=== PATIENT | female | born 1960 | race Caucasian/White ===

== ENCOUNTER → 2018-03-30 | Outpatient (CLI) | payer BC ==
[~2018-03-30] MED LIST: 5HTP PO; ALPR-429 PO; AMOX-559 PO; ASCO-191 PO; ASCO100T15 PO; BISA-151 PO; CHOL200038 PO; CHOL200074 PO; CIT20 PO; CITA-139 PO; CLON-303 *; CRAN500C12 PO; DESV50TA9 PO; DOCU-416 PO; DOXY-1 PO; ESC10 PO; ESTR0.62 PO; ESTR1PAT88 TD; ESTR42.5 VG; FLAX100053 PO; FOLI-68 PO; GUAI-648 PO; GUAI600T57 PO; HYDR200T77 PO; IBUP200C71 PO; LEVO50TA89 PO; LOR5/325 PO; METH2.5T43 PO; METHOTREX; MINOCYCLINE; MIRT7.5T2 PO; OMEP-153 PO; OXYC-373 PO; OXYC-375 PO; OXYC-854 PO; OXYC-865 PO; PHEN200T32 PO; POLY17PO25 PO; PRAVASTATIN PO; PSEU120T69 PO; SODI15DR18 OP; TIZA4CAP3 PO; TRIA10.8 NS; TRIAMTERENE; TURMERIC CURCUMIN; VITA1CAP46 PO; ZINC50TA2 PO; ZOLP-350 PO; [UNRECOGNIZED DRUG - CODE] MC; [UNRECOGNIZED DRUG - CODE] PO; [UNRECOGNIZED DRUG - CODE] PO; [UNRECOGNIZED DRUG - CODE] TP; [UNRECOGNIZED DRUG - OTHER]; [UNRECOGNIZED DRUG - OTHER]
== END ==
LOC: LAB 12:49
PROVIDERS: ATTEND Internal Medicine Nephrology
DX: N18.2 Chronic kidney disease, stage 2 (mild) (principal)
CPT/HCPCS: 36415; 82040; 82247; 82248; 84075; 84155; 84450; 84460

== ENCOUNTER → 2018-04-15 | Outpatient (CLI) | payer BC ==
[~2018-04-15] MED LIST changes: -CITA-139 PO; +CITA-145 PO; -OXYC-375 PO; +OXYC1TAB78 PO
== END ==
LOC: LAB 10:55
PROVIDERS: ATTEND Internal Medicine Nephrology
DX: N18.2 Chronic kidney disease, stage 2 (mild) (principal)
CPT/HCPCS: 36415; 82040; 82310; 82374; 82435; 82565; 82947; 84100; 84132; 84295; 84520

== ENCOUNTER → 2018-05-11 | Outpatient (CLI) | payer BC ==
--- NOTE | 2018-05-11 13:45 | RADIOLOGY IMAGING REPORT ---
FACILITY: [facility] PATIENT NAME: Edna Haider : 1960 MR: [id number] V: [id number] EXAM DATE: ORDERING PHYSICIAN: FRITZ MACIAS TECHNOLOGIST: Location: [facility] - [place] Patient: Edna Haider : 1960 Visit/Account:[id number] Date of Sevice: 05/11/2018 Exam type: KUB SINGLE VIEW ABDOMEN History: History of kidney stones Comparison: May 15, 2017. Findings: Bowel gas pattern is nonspecific. No definite calculi are seen projecting over the renal shadows. M ild to moderate degenerative changes of both hip joints and lumbar spine. No gross evidence of organ omegaly. IMPRESSION: 1. No definite calculi seen projecting over the renal shadows. Report Dictated By: Iram Chiu MD at 05/11/2018 1:40 PM Report E-Signed By: Iram Chiu MD at 05/11/2018 1:42 PM WSN:[email or web address]
== END ==
LOC: LAB 12:37
PROVIDERS: ATTEND Internal Medicine Nephrology
DX: N18.2 Chronic kidney disease, stage 2 (mild) (principal); N20.0 Calculus of kidney
CPT/HCPCS: 74018; 82340; 82507; 83945; 84105; 84560

== ENCOUNTER → 2018-06-22 | Outpatient (CLI) | payer BC ==
[~2018-06-22] MED LIST changes: +IBUP-136 PO; -IBUP200C71 PO
--- NOTE | 2018-06-22 14:03 | RADIOLOGY IMAGING REPORT ---
[place] [facility] [place] NAME: Edna Haider : 1960 MR: [id number] V: [id number] EXAM DATE: ORDERING PHYSICIAN: GABI BARCLAY TECHNOLOGIST: Location: [facility] - [place] Patient: Edna Haider : 1960 Visit/Account:[id number] Date of Sevice: 06/22/2018 EXAMINATION: C SPINE W/O CONTRAST INDICATION: Neck pain COMPARISON: January 10, 2016 TECHNIQUE: Multiplane MR imaging was performed through the cervical spine without contrast. FINDINGS: Vertebral body height: Normal Cord signal: Normal Marrow signal: Normal Prevertebral and paraspinal soft tissues: Normal C2-3: Normal C3-4: Normal C4-5: Congenitally narrowed canal, small unchanged disc protrusion, mild to moderate unchanged canal narrowing, mild unchanged right foraminal narrowing. C5-6: Moderate unchanged disc space degeneration. Congenitally narrowed canal and small disc protrusi on as before. Unchanged moderate canal narrowing. Moderate unchanged right foraminal narrowing. Moder ate to severe left foraminal narrowing has either increased or was better visualized on prior. C6-7: Moderate to severe unchanged disc space degeneration. Small disc protrusion and congenitally na rrowed canal as before. Moderate unchanged canal narrowing. Severe unchanged right greater than left foraminal narrowing. C7-T1: Normal IMPRESSION: 1. Unchanged mild to moderate C4-5, moderate C5-6 and moderate C6-7 canal narrowing. 2. Multilevel foraminal narrowing as before, see level by level comments above. 3. Unchanged C5-6 and C6-7 disc space degeneration, see comments above. Report Dictated By: Keegan Luna MD at 06/22/2018 1:53 PM Report E-Signed By: Keegan Luna MD at 06/22/2018 2:00 PM WSN:[email or web address]
== END ==
LOC: MRI 12:36
PROVIDERS: ATTEND Family Medicine
DX: M48.02 Spinal stenosis, cervical region (principal); M50.321 Other cervical disc degeneration at C4-C5 level
CPT/HCPCS: 72141

== ENCOUNTER → 2018-09-14 | Outpatient (CLI) | payer BC ==
[2018-09-14 11:24] LABS: PLATELET COUNT, AUTOMATED 67 K/uL (150-450)
== END ==
LOC: LAB 11:05
PROVIDERS: ATTEND Anesthesiology
DX: Z01.812 Encounter for preprocedural laboratory examination (principal); M19.042 Primary osteoarthritis, left hand; M65.4 Radial styloid tenosynovitis [de Quervain]; G56.02 Carpal tunnel syndrome, left upper limb
CPT/HCPCS: 36415; 82040; 82247; 82310; 82374; 82435; 82565; 82947; 84075; 84132; 84155; 84295; 84450; 84460; 84520; 85025

== ENCOUNTER → 2018-10-06 | Outpatient (REF) | payer BC | LOC: ZZSENDIN 16:44 | PROVIDERS: ATTEND Family Medicine | DX: D69.6 Thrombocytopenia, unspecified (principal) ==

== ENCOUNTER → 2018-11-09 | Outpatient (CLI) | payer BC ==
[2018-11-09 12:25] LABS: PLATELET COUNT, AUTOMATED 56 K/uL (150-450)
== END ==
LOC: LAB 12:05
PROVIDERS: ATTEND Internal Medicine Rheumatology
DX: M05.79 Rheumatoid arthritis with rheumatoid factor of multiple sites without organ or systems involvement (principal); Z79.899 Other long term (current) drug therapy
CPT/HCPCS: 36415; 82040; 82247; 82310; 82374; 82435; 82565; 82947; 84075; 84132; 84155; 84295; 84450; 84460; 84520; 85025; 85651; 86803

== ENCOUNTER → 2019-01-13 | Outpatient (CLI) | payer BC ==
[2018-11-26 12:09] VITALS: BMI 26.9
[~2019-01-13] MED LIST changes: +ACET-1966 PO; +ACET-2893 PO; +ACET-3017 PO; +ACYC-50 PO; +BISA5TAB19 PO; +CITA-141 PO; +CLON-331 PO; +CLON-388 PO; +D-MA50PO PO; +FAMO-129 PO; +GUAI-652 PO; +GUAI600T84 PO; +HYDR50CA47 PO; +IOPAMIDOL 61% 75 ML INFUS BTL 75 ML ONE; +LACT1CAP6 PO; +LAMO25TA68 PO; +MAGN100T5 PO; +METR500T15 PO; +MINO60SO TP; +PRED20TA6 PO; +PSEU120T9 PO; +RANI-366 PO; +VITA-175 PO; +Vitamin D3 PO; +ZOLP-1 PO; +ZOLP-358 PO; +[UNRECOGNIZED DRUG - CODE] PO; +[UNRECOGNIZED DRUG - CODE] TP
--- NOTE | 2019-01-13 14:49 | RADIOLOGY IMAGING REPORT ---
FACILITY: [facility] [place] PATIENT NAME: Edna Haider : 1960 MR: [id number] V: [id number] EXAM DATE: ORDERING PHYSICIAN: GABI BARCLAY TECHNOLOGIST: Location: [facility] Patient: Edna Haider : 1960 Visit/Account:[id number] Date of Sevice: 01/13/2019 CT ABDOMEN PELVIS W/ CON Additional pertinent History: Generalized abdominal pain One of the following dose optimization techniques was utilized in the performance of this exam: Autom ated exposure control; adjustment of the mA and/or kV according to the patient's size; or use of an i terative reconstruction technique. Specific details can be referenced in the facility's radiology C T exam operational policy. TECHNIQUE: Spiral scan was through the abdomen and pelvis during injection of nonionic iodinated in travenous contrast. Contrast: 70 mL of IV Isovue-300 COMPARISON STUDIES: 05/23/2017 FINDINGS: Liver / biliary: Status post cholecystectomy. No liver lesions. Ventricular dilatation of the commo n duct down to the duodenum. Pancreas: negative Spleen: negative Adrenal glands: negative Kidneys / retroperitoneum: Homogenous mammograms bilaterally. Two nonobstructing 2 mm stones in the mid right kidney. Pelvic structures: negative Bowel / peritoneum / mesenteries: There are diverticuli noted throughout the left colon and sigmoid c olon. There is an edematous segment of mid sigmoid colon with pericolonic stranding compatible with uncomplicated acute diverticulitis. No free air. No abscess. (Images 383 through 343 series 3.) T here is a second area of minimal pericolonic stranding adjacent to diverticuli in the distal descendi ng colon (images 308-330 series 3) Vessels: negative Musculoskeletal / Body wall: negative Lymph node assessment: negative Lower chest: negative IMPRESSION: 1. Segment of inflamed mid sigmoid colon compatible with acute uncomplicated diverticulitis. There appears to be a potential second area of minimal diverticulitis or sequela from previous diverticulit is involving the distal descending colon. 2. Nonobstructing small right renal calculi. Report Dictated By: Hal Toribio MD at 01/13/2019 2:33 PM Report E-Signed By: Hal Toribio MD at 01/13/2019 2:45 PM WSN:[email or web address]
== END ==
LOC: CT 07:04
PROVIDERS: ATTEND Family Medicine
DX: K57.30 Diverticulosis of large intestine without perforation or abscess without bleeding (principal); N20.0 Calculus of kidney
CPT/HCPCS: 74177; Q9967

== ENCOUNTER 2019-02-18 14:24 | Emergency (ER) | payer BC ==
[2018-11-26 12:09] VITALS: Wt 78.9 kg
[~2019-02-18 14:24] MED LIST changes: -IOPAMIDOL 61% 75 ML INFUS BTL 75 ML ONE; +SIME180C40 PO
[2019-02-18] MEDS ORDERED: TIZA-1 PO (14:40)
--- NOTE | 2019-02-18 15:13 | ER Report ---
History and Physical Time Seen By MD: 15:12 Hx. of Stated Complaint: abd pain and diarrhea HPI/ROS CHIEF COMPLAINT: abdominal pain HISTORY OF PRESENT ILLNESS: Pt here for evaluation of LLQ abdominal pain. Pt states that pain is constant but will radiate to the right lower quadrant at times. worse with palpation and motion.Pt concerned it could be diverticulitis. Pt Had divertic in Jan and was treated with augmentin and flagyl. Pt states she is also sick with headache, bodyaches, occasional cough and muscleaches. Pt denies fevers but states she does not get fevers. Pt is on custodial steroids for itp. REVIEW OF SYSTEMS: Constitutional: No fever, no chills. Eyes: No discharge. ENT: No sore throat. Cardiovascular: No chest pain, no palpitations. Respiratory: + cough, no shortness of breath. Gastrointestinal: + abdominal pain, no vomiting,loose stool Genitourinary: No hematuria. Musculoskeletal: No back pain. + bodyaches Skin: No rashes. Neurological: + headache. Allergies: Coded Allergies: sulfamethoxazole (Unverified Adverse Reaction, Severe, NAUSEA/VOMITING, 02/18/19) trimethoprim (Unverified Adverse Reaction, Severe, NAUSEA/VOMITING, 02/18/19) Home Meds Reported Medications Tizanidine Hcl (TIZANIDINE HCL) 2 Mg Tablet, 2 MG PO TID PRN for MUSCLE SPASMS 02/18/19 Simethicone (GAS-X ULTRA STRENGTH) 180 Mg Capsule, 180 MG PO PRN, CAPSULE 01/21/19 D-Mannose (MANNOSE) 50 Gm Powder, 50 GM PO 12/09/18 Lactobacillus Combination No.4 (PROBIOTIC) 1 Each Capsule, 1 EACH PO DAILY, CA PSULE 12/09/18 Clonazepam (CLONAZEPAM) 0.5 Mg Tab.rapdis, 0.5 MG PO PRN, #6 TAB Take 1/2 to 1 tablet PRN 12/09/18 [Vitamin D3] No Conflict Check, 5000 UNITS PO DAILY 12/09/18 Prednisone (PREDNISONE) 20 Mg Tablet, 2.5 MG PO QDAY, TAB 12/03/18 Zolpidem Tartrate (ZOLPIDEM TARTRATE) 10 Mg Tablet, 0.5-1 TAB PO QHS, #30 TAB 11/27/18 Minoxidil (MINOXIDIL) 60 Ml Solution, 60 ML TP DAILY 11/26/18 Acyclovir (ACYCLOVIR) 400 Mg Tablet, 400 MG PO TID, TAB PT REPORTS TAKING 1 TAB TID FOR 4-5 DAYS PRN FOR COLD SORE BREAKOUTS 11/26/18 Citalopram Hydrobromide (CITALOPRAM HBR) 40 Mg Tablet, 40 MG PO QDAY, #5 TAB 11/26/18 Acetaminophen (ARTHRITIS PAIN) 650 Mg Tablet.er, 650 MG PO PRN 11/25/18 Hydroxyzine Pamoate (VISTARIL) 50 Mg Capsule, 1-2 CAP PO PRN, CAPSULE 11/25/18 Vitamin B Complex (B COMPLEX) 1 Each Tablet, 1 EACH PO DAILY 11/25/18 Magnesium Glycinate (MAG GLYCINATE) 100 Mg Tablet, 4 TAB PO QHS 11/25/18 Estrogens, Conjugated 0.625 Mg/Ml Vag Cream (PREMARIN 0.625 MG/ML VAGINAL CR) 42.5 Gm Cream.appl, 0 VG Q2WK, TUBE 01/12/17 Zinc Amino Acid Chelate (ZINC) 50 Mg Tablet, 50 MG PO QDAY 01/12/17 Triamcinolone Acetonide (Nasacort) 10.8 Ml [place], 1 SPRAY NS BID PRN for ALLERGY SYMPTOMS 02/28/16 Discontinued Reported Medications Metronidazole (METRONIDAZOLE) 500 Mg Tablet, 500 MG PO TID for 7 Days, TAB 01/14/19 Amoxicillin/Pot Clav 875-125 Mg Tab (AUGMENTIN 875-125 TABLET) 1 Each Tablet, 1 TAB PO Q8H for 7 Days, TAB 01/14/19 Oxycodone Hcl/Acetaminophen (PERCOCET 5-325 MG TABLET) 1 Each Tablet, 1 EACH PO DIRECTED PRN for BREAKTHROUGH PAIN, #15 TAB 01/14/19 Bisacodyl (Women's Gentle Laxative) 5 Mg Tablet.dr, 1 TAB PO PRN PRN for CONSTIPATION 12/09/18 Famotidine (PEPCID AC) 10 Mg Tablet, 10 MG PO PRN, TAB 11/25/18 Oregano Oil (OIL OF [place]) 1,500 Mg Capsule, 1500 MG PO PRN, CAPSULE 11/25/18 Past Medical/Surgical History Pmhx: ITP, RA, depression/anxiety, hypercholesterol, kidney ds, kidney stones, divertic Pshx: back surgery, jon Reviewed Nurses Notes: Yes Old Medical Records Reviewed: Yes Hx Smoking: No Smoking Status: Never Smoker Hx Substance Use Disorder: No Hx Alcohol Use: Yes (moderate) Constitutional Vital Sign - Last 24 Hours 02/18/19 02/18/19 02/18/19 02/18/19 14:31 14:33 14:54 15:00 Temp 99.4 Pulse 104 91 Resp 12 B/P (MAP) 132/111 (118) 132/111 128/93 (105) Pulse Ox 96 94 O2 Delivery Room Air 02/18/19 02/18/19 02/18/19 02/18/19 15:24 15:30 15:35 15:40 Pulse 82 85 88 B/P (MAP) 134/88 (103) Pulse Ox 97 94 96 02/18/19 02/18/19 02/18/19 16:10 16:30 16:40 Pulse 85 88 B/P (MAP) 142/91 (108) Pulse Ox 93 90 Physical Exam General Appearance: The patient is alert, has no immediate need for airway protection and no signs of toxicity. Eyes: Pupils equal and round no pallor or injection, EOMI ENT: no pharyngeal erythema or exudates, Mucous membranes are moist, TM are nl b/l Respiratory: There are no retractions, lungs are clear to auscultation. Cardiovascular: Regular rate and rhythm. pulses are equal and symmetrical Gastrointestinal: Abdomen is soft with LLQ tenderness, no masses, bowel sounds normal, no guarding, no rigidity or rebound Neurological: Cranial nerves II-XII grossly intact, no sensory or motor loss Skin: Warm and dry, no rashes. Musculoskeletal: Neck is supple non tender, no vertebral tenderness Extremities are nontender, nonswollen and have full range of motion. DIFFERENTIAL DIAGNOSIS: After history and physical exam differential diagnosis was considered for divertic, abd abscess, ovarian cyst, appy, influenza Medical Decision Making Data Points Result Diagram: 02/18/19 1433 Laboratory Hematology Test 02/18/19 14:33 02/18/19 15:39 02/18/19 16:09 Sodium Level 134 mmol/L (137-145) Potassium Level 4.0 mmol/L (3.5-5.0) Chloride Level 106 mmol/L (98-107) Carbon Dioxide Level 22 mmol/L (22-31) Blood Urea Nitrogen 18 mg/dl (7-18) Creatinine 0.90 mg/dl (0.52-1.04) Glomerular Filtration Rate Calc > 60.0 Random Glucose 100 mg/dl (75-110) Calcium Level 9.5 mg/dl (8.4-10.2) Total Bilirubin 0.6 mg/dl (0.2-1.3) Aspartate Amino Transf (AST/SGOT) 36 U/L (0-35) Alanine Aminotransferase (ALT/SGPT) 39 U/L (0-56) Alkaline Phosphatase 115 U/L (0-126) Total Protein 8.0 g/dl (6.3-8.2) Albumin 4.5 g/dl (3.5-5.0) Influenza Virus Type A (PCR) Negative (NEGATIVE) Influenza Virus Type B (PCR) Negative (NEGATIVE) Urine Color Straw Urine Clarity Clear Urine pH 8.0 pH (4.8-9.5) Urine Specific Secretary 1.010 Urine Protein Negative mg/dL (NEGATIVE) Urine Glucose (UA) Negative mg/dL (NEGATIVE) Urine Ketones Negative mg/dL (NEGATIVE) Urine Blood Negative (NEGATIVE) Urine Nitrite Negative (NEGATIVE) Urine Bilirubin Negative (NEGATIVE) Urine Urobilinogen Negative mg/dL (0.2-1.9) Urine Leukocyte Esterase Negative (NEGATIVE) Urine RBC <1 /HPF (0-2/HPF) Urine WBC None /HPF (0-5/HPF) Urine Squamous Epithelial Cells Many /LPF (</=FEW) Urine Bacteria Negative /HPF (NONE-FEW) Urine Hyaline Casts Few /LPF (NONE-FEW) Urine Mucus None /HPF (NONE-FEW) Chemistry Test 02/18/19 14:33 02/18/19 15:39 02/18/19 16:09 Glomerular Filtration Rate Calc > 60.0 Calcium Level 9.5 mg/dl (8.4-10.2) Total Bilirubin 0.6 mg/dl (0.2-1.3) Aspartate Amino Transf (AST/SGOT) 36 U/L (0-35) Alanine Aminotransferase (ALT/SGPT) 39 U/L (0-56) Alkaline Phosphatase 115 U/L (0-126) Total Protein 8.0 g/dl (6.3-8.2) Albumin 4.5 g/dl (3.5-5.0) Influenza Virus Type A (PCR) Negative (NEGATIVE) Influenza Virus Type B (PCR) Negative (NEGATIVE) Urine Color Straw Urine Clarity Clear Urine pH 8.0 pH (4.8-9.5) Urine Specific Secretary 1.010 Urine Protein Negative mg/dL (NEGATIVE) Urine Glucose (UA) Negative mg/dL (NEGATIVE) Urine Ketones Negative mg/dL (NEGATIVE) Urine Blood Negative (NEGATIVE) Urine Nitrite Negative (NEGATIVE) Urine Bilirubin Negative (NEGATIVE) Urine Urobilinogen Negative mg/dL (0.2-1.9) Urine Leukocyte Esterase Negative (NEGATIVE) Urine RBC <1 /HPF (0-2/HPF) Urine WBC None /HPF (0-5/HPF) Urine Squamous Epithelial Cells Many /LPF (</=FEW) Urine Bacteria Negative /HPF (NONE-FEW) Urine Hyaline Casts Few /LPF (NONE-FEW) Urine Mucus None /HPF (NONE-FEW) Urinalysis Test 02/18/19 16:09 Urine Color Straw Urine Clarity Clear Urine pH 8.0 pH (4.8-9.5) Urine Specific Secretary 1.010 Urine Protein Negative mg/dL (NEGATIVE) Urine Glucose (UA) Negative mg/dL (NEGATIVE) Urine Ketones Negative mg/dL (NEGATIVE) Urine Blood Negative (NEGATIVE) Urine Nitrite Negative (NEGATIVE) Urine Bilirubin Negative (NEGATIVE) Urine Urobilinogen Negative mg/dL (0.2-1.9) Urine Leukocyte Esterase Negative (NEGATIVE) Urine RBC <1 /HPF (0-2/HPF) Urine WBC None /HPF (0-5/HPF) Urine Squamous Epithelial Cells Many /LPF (</=FEW) Urine Bacteria Negative /HPF (NONE-FEW) Urine Hyaline Casts Few /LPF (NONE-FEW) Urine Mucus None /HPF (NONE-FEW) ED Course/Re-evaluation ED Course check labs and ct 02/18/2019 4:20:38 pm pts abdominal pain not gone but improved with the fentanyl. headache gone. 02/18/2019 4:53:13 pm Pts belly pain returning. will remedicate. Pts imaging shows divertic without perf or abscess. Pt had divertic in January. I recommend pt follow up with DR. Parsons for colonoscopy which she has never had once she has completed her abx. Pt does not want levaquin but would like augmentin with flagyl. Pt also has thrush from prior abx which was treated with nystatin wash and now feels that she may need diflucan for possible yeast vaginally. Will prescribe diflucan as well. Decision to Disposition Date: Feb 18, 2019 Decision to Disposition Time: 16:55 Depart Departure Latest Vital Signs Vital Signs Date Time Temp Pulse Resp B/P (MAP) Pulse Ox O2 Delivery O2 Flow Rate FiO2 02/18/19 16:40 88 90 02/18/19 16:30 142/91 (108) 02/18/19 14:33 99.4 12 Room Air Impression: Primary Impression: Sigmoid diverticulitis Condition: Condition Unchanged Disposition: HOME OR SELF-CARE Referrals: GABI BARCLAY DO (PCP) MASOUD PARSONS MD recommend out patient Colonscopy when better New Scripts Amoxicillin/Pot Clav 875-125 Mg Tab (AUGMENTIN 875-125 TABLET) 1 Each Tablet 1 TAB PO Q12H, #20 TAB Prov: FANY BLUE DO 02/18/19 Metronidazole (FLAGYL) 500 Mg Tablet 500 MG PO TID, #30 TAB Prov: FANY BLUE DO 02/18/19 Fluconazole (DIFLUCAN) 150 Mg Tablet 150 MG PO QDAY, #1 TAB 1 Refill Prov: FANY BLUE DO 02/18/19 Patient Instructions: Diverticulitis (ED) Additional Instructions: You have acute diverticulitis. Recommend when you are better to follow up with Dr. Parsons to schedule a colonoscopy. Flagyl 500mg three times a day for 10 days. Augmentin twice a day for 10 days. Diflucan one pill when you pick it up. You may repeat if you are still symptomatic after you have completed your antibiotic course. hydrocodone with tylenol 1-2 every 4 hours as needed for severe pain. Follow up with your family doctor. Return as needed. FANY BLUE DO Feb 18, 2019 15:13
[2019-02-18] MEDS ORDERED: fentaNYL CITR 100 MCG/2 ML AMP IVP ONE ×2 (15:25→16:55)
[2019-02-18] MEDS ORDERED: IOPAMIDOL 76% 150 ML INFUS BTL 150 ML ONE (15:35)
[2019-02-18] MEDS ORDERED: fentaNYL CITR 100 MCG/2 ML AMP ONE (15:45)
[2019-02-18 16:30] VITALS: BP 142/91
--- NOTE | 2019-02-18 16:39 | RADIOLOGY IMAGING REPORT ---
FACILITY: [facility] PATIENT NAME: Edna Haider : 1960 MR: [id number] V: [id number] EXAM DATE: ORDERING PHYSICIAN: FANY BLUE TECHNOLOGIST: Location: [facility] Patient: Edna Haider : 1960 Visit/Account:[id number] Date of Sevice: 02/18/2019 EXAMINATION: CT abdomen and pelvis with contrast COMPARISON: 01/13/2019 CT and earlier. HISTORY: Left lower quadrant abdominal pain radiating to the right. PROCEDURE: Multiplanar contrast enhanced CT of the abdomen and pelvis with 75 mL intravenous Isovue 3 70. One of the following dose optimization techniques was utilized in the performance of this exam: A utomated exposure control; adjustment of the mA and/or kV according to the patient's size; or use of an iterative reconstruction technique. Specific details can be referenced in the facility's radiolo gy CT exam operational policy. FINDINGS: Visualized thorax: Left lower lobe 3 mm nodule is unchanged since 2017 and is considered a benign fin ding. No acute changes. Liver: Negative. Gallbladder and biliary system: Cholecystectomy. Intrahepatic and extra hepatic bile duct is unchange d since 2017 and favored to be due to the postcholecystectomy state. Spleen: Negative. Pancreas: Negative. Adrenal glands: Negative. Kidneys and bladder: No renal mass or hydronephrosis. Punctate nonobstructing stones in the right kid wade mid pole. Urinary bladder is within normal limits. Vessels: Minimal iliac atherosclerosis. No abdominal aortic aneurysm. Portal venous system and IVC ar e within normal limits. Bowel and mesentery: Stomach, small bowel, and appendix are within normal limits. Minimal stool in th e colon. Left hemicolon mild to moderate diverticulosis. Proximal sigmoid colon diverticular inflamma tion with wall thickening and pericolonic inflammation. No extraluminal gas or fluid collection. This segment of inflamed bowel is different than the diverticulitis demonstrated on the prior study. Pelvic organs: Negative. Lymph nodes: No adenopathy. Free air/free fluid: None. Abdominal wall and osseous structures: Tiny fat-containing of the local hernia. L4-L5 moderately adva nced degenerative change with moderate canal stenosis is redemonstrated. No acute findings. IMPRESSION: 1. Proximal sigmoid colon acute uncomplicated diverticulitis. 2. Right kidney punctate nonobstructing nephrolithiasis. 3. Additional chronic/incidental findings as detailed above. Report Dictated By: Anuel Kraus MD at 02/18/2019 4:26 PM Report E-Signed By: Anuel Kraus MD at 02/18/2019 4:35 PM WSN:[id number]
[2019-02-18] MEDS ORDERED: AMOX-559 PO (16:58)
[2019-02-18] MEDS ORDERED: METR-1 PO (16:58)
[2019-02-18] MEDS ORDERED: LOR5/325 PO (16:58)
[2019-02-18] MEDS ORDERED: FLUC150T40 PO (16:58)
== END 2019-02-18 17:16 | disposition home or self-care (01) ==
LOC: ER 15:14
DX: K57.32 Diverticulitis of large intestine without perforation or abscess without bleeding (principal)
CPT/HCPCS: 74177; 81001; 87502; 96374; 96376; 99284; J3010; Q9967; 82040; 82247; 82310; 82374; 82435; 82565; 82947; 84075; 84132; 84155; 84295; 84450; 84460; 84520

== ENCOUNTER 2019-02-25 08:30 | Outpatient (RCR) | payer BC ==
[2018-11-26 12:09] VITALS: Ht 170.2 cm; Wt 79.7 kg
[2018-12-03 08:32] VITALS: BP 132/99
[2018-12-03 08:57] LABS: PLATELET COUNT, AUTOMATED 23 K/uL (150-450)
--- NOTE | 2018-12-03 10:56 | ONCOLOGY CONSULTATION ---
EVENT DATE: December 03, 2018 REFERRING PHYSICIAN Hospitalist. REASON FOR CONSULTATION Evaluation and management of thrombocytopenia. HEMATOLOGY HISTORY Patient is a 58-year-old female with a history of autoimmune disease with mild rheumatoid arthritis diagnosed in 2010. Patient was tested also positive for JUN. She is followed by community engagement specialist. Patient was maintained on Plaquenil for over seven years and for improving her mood as the patient has depression and anxiety. Patient was prescribed Lamictal and after that she started to have low platelet count. She was admitted to the hospital recently with a platelet of 5,000. Patient was taken off Plaquenil and Lamictal and she received platelet transfusion and she received one dose of Decadron 40 mg intravenously and her platelet count improved after that from 5,000 to 50,000, then to 80,000 but her platelet count today on December 03, 2018, dropped back to 23 with normal CBC except for the low platelet count. Patient denies any constitutional symptoms currently. Patient denies any current bleeding or easy bruising. PAST MEDICAL HISTORY 1. Rheumatoid arthritis, diagnosed in 2010. She was diagnosed with inflammatory arthritis at that time. 2. Depression and anxiety. 3. Hypercholesterolemia. 4. Chronic kidney disease, stage 2. PAST SURGICAL HISTORY 1. Back surgery. 2. Cholecystectomy. FAMILY HISTORY Paternal aunt with breast cancer. Paternal cousin with breast cancer. 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 She denies any abuse of tobacco, alcohol or drugs. She drinks alcohol sometimes. CURRENT MEDICATIONS 1. Zolpidem 10 mg 1/2 to 1 tablet at bedtime p.r.n. 2. Minoxidil solution topical daily. 3. Acyclovir 400 mg three times a day. 4. Guaifenesin 600 mg as needed. 5. Citalopram 40 mg daily. 6. Pepcid 10 mg oral as needed. 7. Tylenol 650 mg p.r.n. for pain. 8. Zantac 150 mg as needed. 9. Pseudoephedrine 120 mg as needed. 10. Oregano Oil 1500 mg oral as needed. 11. Acetaminophen with codeine 3 every 4 hours p.r.n. for pain. 12. Clonazepam 0.5 mg twice daily as needed p.r.n. 13. Hydroxyzine 50 mg one to two capsules as needed. 14. Vitamin B complex daily. 15. Magnesium glycinate 100 mg at bedtime. 16. Conjugated estrogen 0.625 mg cream every two weeks. 17. Vitamin D3 2000 units daily. 18. Vitamin C 1000 mg daily. 19. Zinc immuno acid 50 mg daily. 20. Triamcinolone acetonide spray nasal twice. ALLERGIES No known drug allergies but she is ALLERGIC to IODINATED CONTRAST. REVIEW OF SYSTEMS CONSTITUTIONAL: No appetite or weight change. No fever, chills or sweating. No recent infection. HEENT: Ears: No tinnitus or hearing problem. Nose: She has nasal discharge. Throat: No sore throat or mouth ulcers. Eyes: No diplopia or visual changes. RESPIRATORY: She has cough. CARDIOVASCULAR: No chest pain, orthopnea, or paroxysmal nocturnal dyspnea (PND). No edema. No palpitations. GASTROINTESTINAL: She has heartburn sometimes. GENITOURINARY: Patient has had heavy periods for years, and she has been seen by a foreign policy officer, and she was offered uterine ablation, but the patient refused the procedure. As per patient, she has had heavy periods for a total of seven days every month. MUSCULOSKELETAL: No pain in the muscles, joints or bones. NEUROLOGICAL: She has numbness in her left hand after her recent surgery. She has headache. HEMATOLOGIC/LYMPHATIC: She is weak, tired and fatigued. SKIN: No skin rash or lumps. PSYCHIATRIC: No anxiety or depression. PHYSICAL EXAMINATION GENERAL: Looks stable. Well-developed, well-nourished, and in no acute distress. VITAL SIGNS: Blood pressure 132/99, pulse 80 per minute, respirations 16 per minute, temperature 98.8, pulse ox 95% on room air. HEENT: Head: Atraumatic. No sinus tenderness to palpation. Eyes: No icterus or conjunctivitis. Mouth and Throat: No oral thrush or mucositis. NECK: Supple. No cervical or supraclavicular lymphadenopathy. LUNGS: Clear to auscultation and percussion bilaterally. HEART: Regular rate and rhythm. No gallops, murmurs, clicks or rubs. ABDOMEN: Soft and lax. No tenderness. No hepatosplenomegaly. No masses. EXTREMITIES: No cyanosis, clubbing or edema. LYMPHATICS: No peripheral lymphadenopathy. NEUROLOGICAL: Conscious, alert and oriented x3. No focal motor or sensory deficits. PSYCHIATRIC: Mood and affect appear normal. SKIN: No skin rash, bruise or purpuric eruption. ASSESSMENT Thrombocytopenia, most probably due to idiopathic thrombocytopenic purpura given that the patient has a history of autoimmune disease with rheumatoid arthritis and positive JUN. Her current platelet count is 23,000. I had a long discussion with the patient about first-line treatment and I am planning to treat her with prednisone 60 mg daily with gradual taper off over the next two to three months if the patient will have a response to the treatment. I talked to her also today about second-line treatment, which may include rituximab and Nplate. As an evaluation for her idiopathic thrombocytopenic purpura, I am planning to check her platelet associated antibodies, vitamin B12, methylmalonic assay and folic acid assay. I am planning also to check H. pylori test. I am planning also to get an ultrasound of the spleen. I am planning to check HIV testing too. I will see the patient after the above for further evaluation and management. I am planning to check her blood count twice per week and I will see her in two weeks from now with CBC and chem panel. PLAN 1. CBC and chem panel. 2. Vitamin B12 and methylmalonic acid assay. 3. Folic acid level. 4. H. pylori test. 5. HIV test. 6. Ultrasound of the abdomen for evaluation of the spleen size. 7. Prednisone 60 mg daily. 8. CBC to be checked twice per week. 9. Patient to return in two weeks with CBC and chem panel. 10. Patient to contact us for any new concerns or complaints. BEATA
[2018-12-07 08:29] VITALS: BP 111/88
[2018-12-07 08:43] LABS: PLATELET COUNT, AUTOMATED 116 K/uL (150-450)
--- NOTE | 2018-12-07 08:50 | RADIOLOGY IMAGING REPORT ---
FACILITY: [facility] - [place] PATIENT NAME: Edna Haider : 1960 MR: [id number] V: [id number] EXAM DATE: ORDERING PHYSICIAN: GAUTAM TORRES TECHNOLOGIST: Location: [facility] - [place] Patient: Edna Haider : 1960 Visit/Account:[id number] Date of Sevice: 12/07/2018 SPLEEN HISTORY: Thrombocytopenia Additional history: None COMPARISON: Comparison abdomen/pelvis CT January 12, 2017. Spleen appeared normal at that time. FINDINGS: This is a limited examination with attention of the spleen. The spleen is normal in size and appeara nce measuring 9 x 3 cm. There is no splenomegaly. Left kidney is also visualized and measures 8.7 c m in length and appears morphologically normal. Aorta and IVC are patent. IMPRESSION: Normal-appearing spleen. No evidence of splenomegaly Report Dictated By: Martin Chi MD at 12/07/2018 8:42 AM Report E-Signed By: Martin Chi MD at 12/07/2018 8:45 AM WSN:[email or web address]
[2018-12-10 09:58] VITALS: BP 117/79
[2018-12-10 10:16] LABS: PLATELET COUNT, AUTOMATED 95 K/uL (150-450)
[2018-12-14 10:05] VITALS: BP 127/85
[2018-12-14 10:29] LABS: PLATELET COUNT, AUTOMATED 114 K/uL (150-450)
[2018-12-17 08:15] VITALS: BP 135/96
[2018-12-17 08:23] LABS: PLATELET COUNT, AUTOMATED 115 K/uL (150-450)
--- NOTE | 2018-12-19 17:02 | ONCOLOGY FOLLOW UP NOTE ---
EVENT DATE: December 17, 2018 CHIEF COMPLAINT Followup for thrombocytopenia. HISTORY OF PRESENT ILLNESS Patient is a 58-year-old female who was seen today in followup. She was started on prednisone 60 mg daily on 12/03/18. Platelet count has remained in the 100,000 range, improved over initial platelet count. She does note that much of her stiffness related to her rheumatoid arthritis has significantly improved. She is hesitant to decrease the prednisone dose too quickly. She has an appointment to see a purchasing intern next week. She has had anxiety, but finds that clonazepam has been helpful. She also notes some recent constipation. HEMATOLOGY HISTORY Patient has a history of autoimmune disease with rheumatoid arthritis diagnosed in 2010. She was maintained on Plaquenil for over seven years which worked fairly well. She was also treated with Lamictal for anxiety/depression, but then noted her platelet count started to decrease. She presented to the Emergency Room on 11/25/18 with a platelet count of 9000. She began prednisone 60 mg daily on 12/03/18. MEDICAL HISTORY 1. Rheumatoid arthritis, 2010. 2. Depression/anxiety. 3. Hyperlipidemia. 4. Chronic kidney disease, stage 2. PAST SURGICAL HISTORY 1. Back surgery. 2. Cholecystectomy. 3. Bilateral land surgery. FAMILY HISTORY Paternal aunt had breast cancer. Paternal cousin had breast cancer. SOCIAL HISTORY Patient is single. She has no children. She works with a partner at [employer]. She does not smoke or use drugs. She drinks alcohol occasionally. MEDICATIONS 1. Zolpidem. 2. Minoxidil solution. 3. Acyclovir 400 mg t.i.d. 4. Guaifenesin. 5. Citalopram 40 mg daily. 6. Pepcid p.r.n. 7. Tylenol p.r.n. 8. Zantac p.r.n. 9. Pseudoephedrine p.r.n. 10. Oregano oil. 11. Tylenol No. 3 p.r.n. 12. Clonazepam 0.5 to 1 mg. 13. Hydroxyzine p.r.n. 14. Vitamin B complex. 15. Magnesium glycinate. 16. Conjugated estrogen cream every two weeks. 17. Vitamin D3 2000 International Units daily. 18. Vitamin C 1000 mg daily. 19. Zinc amino acid. 20. Triamcinolone acetonide nasal spray. 21. Prednisone. ALLERGIES No known drug allergies, but allergic to IODINE CONTRAST. REVIEW OF SYSTEMS A 12-point review of systems is performed and is negative except as stated above. PHYSICAL EXAMINATION VITAL SIGNS: Weight 80.2 kg. BP 135/94, P 92, R 16, temp 98.8, O2 sat 95%. GENERAL: Patient is a well-developed, well-nourished female in no acute distress. HEAD: Normocephalic, atraumatic. EYES: Sclerae anicteric. MOUTH: Moist mucous membranes. LUNGS: Clear bilaterally. CARDIOVASCULAR: Heart rate regular, 92 per minute, without murmur, S3, or S4. EXTREMITIES: No edema. NEUROLOGIC: Nonfocal. LABORATORY CBC today reveals a WBC of 11.5, hemoglobin 15.6, hematocrit 45.3, platelets 115,000. CMP is within normal limits. B12 is 784, methylmalonic acid 0.16, folate 19.2. HIV negative. Strongly positive platelet antibodies IgG and IgM. IMPRESSION AND PLAN The patient is a 58-year-old female with autoimmune disease with rheumatoid arthritis and positive JUN. When she started on Lamictal, platelet count decreased and this was discontinued. She presented on 11/25/18 with a platelet count of 9000. She began prednisone 60 mg daily on 12/03/18. 1. Thrombocytopenia. Likely idiopathic thrombocytopenia purpura. She is no longer taking Lamictal. As platelet count has been in the 100,000 range since 12/07/18, will continue prednisone 60 mg daily. She actually hopes that this does not get discontinued too quickly as her rheumatoid arthritis symptoms are markedly better. We spent some time reviewing her labs as well as her abdominal ultrasound done on 12/07/18. Spleen was normal size. 2. Rheumatoid arthritis. She will follow up with purchasing intern next week. She has been off Plaquenil and noted significantly increased fatigue as well as stiffness. However, this has resolved on prednisone. 3. Constipation. Recommended senna-S. She did not find MiraLAX to be helpful. 4. CBC on 12/21/18. 5. Follow up with Dr. Gomez on 12/24/18 for continued care. BEATA
[2018-12-21 10:04] LABS: PLATELET COUNT, AUTOMATED 123 K/uL (150-450)
[2018-12-21 10:05] VITALS: BP 141/84
[2018-12-24 09:00] VITALS: BP 120/86
[2018-12-24 09:14] LABS: PLATELET COUNT, AUTOMATED 162 K/uL (150-450)
--- NOTE | 2018-12-24 10:14 | EL-TARABILY ONCOLOGY NOTE ---
EVENT DATE: December 24, 2018 DIAGNOSES 1. Idiopathic thrombocytopenic purpura. 2. Rheumatoid arthritis. CHIEF COMPLAINT Patient is here today for follow up of her ITP with low platelet count. HEMATOLOGY HISTORY Patient is a 58-year-old female with a history of autoimmune disease with mild rheumatoid arthritis diagnosed in 2010. Patient was tested also positive for JUN. She is followed by pyrotechnic assembler. Patient was maintained on Plaquenil for over seven years and for improving her mood as the patient has depression and anxiety. Patient was prescribed Lamictal and after that she started to have low platelet count. She was admitted to the hospital recently with a platelet of 5,000. Patient was taken off Plaquenil and Lamictal and she received platelet transfusion and she received one dose of Decadron 40 mg intravenously and her platelet count improved after that from 5,000 to 50,000, then to 80,000 but her platelet count today on December 03, 2018, dropped back to 23 with normal CBC except for the low platelet count. Patient denies any constitutional symptoms currently. Patient denies any current bleeding or easy bruising. HISTORY AND PRESENT ILLNESS Patient is here today for followup of her ITP with low platelet count. She is doing fine currently. Her joint pain has actually resolved nearly completely with her full-dose prednisone. She has some pain in her right hip area but she said this is actually a muscle pain. Other than that, she is really doing very well. PAST MEDICAL HISTORY 1. Rheumatoid arthritis, diagnosed in 2010. She was diagnosed with inflammatory arthritis at that time. 2. Depression and anxiety. 3. Hypercholesterolemia. 4. Chronic kidney disease, stage 2. PAST SURGICAL HISTORY 1. Back surgery. 2. Cholecystectomy. FAMILY HISTORY Paternal aunt with breast cancer. Paternal cousin with breast cancer. 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 She denies any abuse of tobacco, alcohol or drugs. She drinks alcohol sometimes. CURRENT MEDICATIONS 1. Zolpidem 10 mg 1/2 to 1 tablet at bedtime p.r.n. 2. Minoxidil solution topical daily. 3. Acyclovir 400 mg three times a day. 4. Guaifenesin 600 mg as needed. 5. Citalopram 40 mg daily. 6. Pepcid 10 mg oral as needed. 7. Tylenol 650 mg p.r.n. for pain. 8. Zantac 150 mg as needed. 9. Pseudoephedrine 120 mg as needed. 10. Oregano Oil 1500 mg oral as needed. 11. Acetaminophen with codeine 3 every 4 hours p.r.n. for pain. 12. Clonazepam 0.5 mg twice daily as needed p.r.n. 13. Hydroxyzine 50 mg one to two capsules as needed. 14. Vitamin B complex daily. 15. Magnesium glycinate 100 mg at bedtime. 16. Conjugated estrogen 0.625 mg cream every two weeks. 17. Vitamin D3 2000 units daily. 18. Vitamin C 1000 mg daily. 19. Zinc immuno acid 50 mg daily. 20. Triamcinolone acetonide spray nasal twice. ALLERGIES No known drug allergies but she is ALLERGIC to IODINATED CONTRAST. REVIEW OF SYSTEMS CONSTITUTIONAL: No appetite or weight change. No fever, chills or sweating. No recent infection. HEENT: Ears: No tinnitus or hearing problem. Nose: She has nasal discharge. Throat: No sore throat or mouth ulcers. Eyes: No diplopia or visual changes. RESPIRATORY: She has cough. CARDIOVASCULAR: No chest pain, orthopnea, or paroxysmal nocturnal dyspnea (PND). No edema. No palpitations. GASTROINTESTINAL: She has heartburn sometimes. GENITOURINARY: Patient has had heavy periods for years, and she has been seen by a community relations advisor, and she was offered uterine ablation, but the patient refused the procedure. As per patient, she has had heavy periods for a total of seven days every month. MUSCULOSKELETAL: She has pain in her right hip region due to myalgia but her joint pain is nearly resolved with her current prednisone therapy. NEUROLOGICAL: She has numbness in her left hand after her recent surgery. She has headache. HEMATOLOGIC/LYMPHATIC: She is weak, tired and fatigued. SKIN: No skin rash or lumps. PSYCHIATRIC: No anxiety or depression. PHYSICAL EXAMINATION GENERAL: Looks stable. Well-developed, well-nourished, and in no acute distress. VITAL SIGNS: Blood pressure 120/86, pulse 83 per minute, respirations 16 per minute, temperature 97.4, pulse ox 95% on room air. HEENT: Head: Atraumatic. No sinus tenderness to palpation. Eyes: No icterus or conjunctivitis. Mouth and Throat: No oral thrush or mucositis. NECK: Supple. No cervical or supraclavicular lymphadenopathy. LUNGS: Clear to auscultation and percussion bilaterally. HEART: Regular rate and rhythm. No gallops, murmurs, clicks or rubs. ABDOMEN: Soft and lax. No tenderness. No hepatosplenomegaly. No masses. EXTREMITIES: No cyanosis, clubbing or edema. LYMPHATICS: No peripheral lymphadenopathy. NEUROLOGICAL: Conscious, alert and oriented x3. No focal motor or sensory deficits. PSYCHIATRIC: Mood and affect appear normal. SKIN: No skin rash, bruise or purpuric eruption. DIAGNOSTIC DATA CBC showed white count 9.6, hemoglobin 15.1, hematocrit 44.6, platelet 162,000. ASSESSMENT Thrombocytopenia due to idiopathic thrombocytopenic purpura given that the patient has also autoimmune disease with rheumatoid arthritis and positive JUN. Her current platelet count improved from 23,000 to currently 162,000 with full dose prednisone at 60 mg daily. Patient is now over two weeks on that dose and I am planning to start the slow prednisone taper. I will decrease her dose by 10 mg every week until we reach a dose of 30 mg daily. Then after that we will decrease the dose by 5 mg every week until we taper the prednisone totally off. I am planning to check her CBC every week now. I will see her in a month with CBC and chem panel. If the patient will relapse her low platelet after tapering her prednisone then we will have the option of rituximab, which would also help her rheumatoid arthritis or Nplate therapy. I explained that to the patient and she is agreeable with the plan of management. PLAN 1. Continue prednisone taper. 2. CBC and chem panel to be checked weekly. 3. Patient to return in one month with CBC and chem panel. 4. Consider treatment with rituximab or Nplate if she relapses her thrombocytopenia. 5. Patient to contact us for any new concerns or complaints. ISHAND
[2018-12-31 08:34] VITALS: BP 126/89
[2018-12-31 08:56] LABS: PLATELET COUNT, AUTOMATED 176 K/uL (150-450)
[2019-01-07 08:35] VITALS: BP 159/96
[2019-01-07 08:50] LABS: PLATELET COUNT, AUTOMATED 191 K/uL (150-450)
[2019-01-14 08:32] VITALS: BP 136/93
[2019-01-14 08:49] LABS: PLATELET COUNT, AUTOMATED 273 K/uL (150-450)
[2019-01-21 08:16] VITALS: BP 134/93
[2019-01-21 08:19] LABS: PLATELET COUNT, AUTOMATED 272 K/uL (150-450)
--- NOTE | 2019-01-21 09:55 | ONCOLOGY FOLLOW UP NOTE ---
EVENT DATE: January 21, 2019 DIAGNOSES 1. Idiopathic thrombocytopenic purpura. 2. Rheumatoid arthritis. CHIEF COMPLAINT Patient is here today for follow up of her ITP. HEMATOLOGY HISTORY Patient is a 58-year-old female with a history of autoimmune disease with mild rheumatoid arthritis diagnosed in 2010. Patient was tested also positive for JUN. She is followed by homogenizer operator. Patient was maintained on Plaquenil for over seven years and for improving her mood as the patient has depression and anxiety. Patient was prescribed Lamictal and after that she started to have low platelet count. She was admitted to the hospital recently with a platelet of 5,000. Patient was taken off Plaquenil and Lamictal and she received platelet transfusion and she received one dose of Decadron 40 mg intravenously and her platelet count improved after that from 5,000 to 50,000, then to 80,000 but her platelet count today on December 03, 2018, dropped back to 23 with normal CBC except for the low platelet count. Patient denies any constitutional symptoms currently. Patient denies any current bleeding or easy bruising. HISTORY AND PRESENT ILLNESS Patient is here today for followup of her ITP on prednisone taper currently. She is complaining of sweating. She has dry cough sometime. She has abdominal pain recently due to diverticulitis with gaseous distention, currently on antibiotic. She has aches and pains in her hand joints. She has occasional headache. She is weak, tired and fatigued. PAST MEDICAL HISTORY 1. Rheumatoid arthritis, diagnosed in 2010. She was diagnosed with inflammatory arthritis at that time. 2. Depression and anxiety. 3. Hypercholesterolemia. 4. Chronic kidney disease, stage 2. PAST SURGICAL HISTORY 1. Back surgery. 2. Cholecystectomy. FAMILY HISTORY Paternal aunt with breast cancer. Paternal cousin with breast cancer. 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 She denies any abuse of tobacco, alcohol or drugs. She drinks alcohol sometimes. CURRENT MEDICATIONS 1. Zolpidem 10 mg 1/2 to 1 tablet at bedtime p.r.n. 2. Minoxidil solution topical daily. 3. Acyclovir 400 mg three times a day. 4. Guaifenesin 600 mg as needed. 5. Citalopram 40 mg daily. 6. Pepcid 10 mg oral as needed. 7. Tylenol 650 mg p.r.n. for pain. 8. Zantac 150 mg as needed. 9. Pseudoephedrine 120 mg as needed. 10. Oregano Oil 1500 mg oral as needed. 11. Acetaminophen with codeine 3 every 4 hours p.r.n. for pain. 12. Clonazepam 0.5 mg twice daily as needed p.r.n. 13. Hydroxyzine 50 mg one to two capsules as needed. 14. Vitamin B complex daily. 15. Magnesium glycinate 100 mg at bedtime. 16. Conjugated estrogen 0.625 mg cream every two weeks. 17. Vitamin D3 2000 units daily. 18. Vitamin C 1000 mg daily. 19. Zinc immuno acid 50 mg daily. 20. Triamcinolone acetonide spray nasal twice. ALLERGIES No known drug allergies but she is ALLERGIC to IODINATED CONTRAST. REVIEW OF SYSTEMS CONSTITUTIONAL: Patient has some sweating. HEENT: Ears: No tinnitus or hearing problem. Nose: She has nasal discharge. Throat: No sore throat or mouth ulcers. Eyes: No diplopia or visual changes. RESPIRATORY: She has dry cough. CARDIOVASCULAR: No chest pain, orthopnea, or paroxysmal nocturnal dyspnea (PND). No edema. No palpitations. GASTROINTESTINAL: She has abdominal pain and gaseous distention from her recent diverticulitis. GENITOURINARY: Patient has had heavy periods for years, and she has been seen by a human relations manager, and she was offered uterine ablation, but the patient refused the procedure. As per patient, she has had heavy periods for a total of seven days every month. MUSCULOSKELETAL: She has aches and pains, especially in the hands. NEUROLOGICAL: She has occasional headache. HEMATOLOGIC/LYMPHATIC: She is weak, tired and fatigued. SKIN: No skin rash or lumps. PSYCHIATRIC: No anxiety or depression. PHYSICAL EXAMINATION GENERAL: Looks stable. Well-developed, well-nourished, and in no acute distress. VITAL SIGNS: Blood pressure 134/93, pulse 98 per minute, respirations 16 per minute, temperature 97.4, pulse ox 94% on room air. HEENT: Head: Atraumatic. No sinus tenderness to palpation. Eyes: No icterus or conjunctivitis. Mouth and Throat: No oral thrush or mucositis. NECK: Supple. No cervical or supraclavicular lymphadenopathy. LUNGS: Clear to auscultation and percussion bilaterally. HEART: Regular rate and rhythm. No gallops, murmurs, clicks or rubs. ABDOMEN: Soft and lax. No tenderness. No hepatosplenomegaly. No masses. EXTREMITIES: No cyanosis, clubbing or edema. LYMPHATICS: No peripheral lymphadenopathy. NEUROLOGICAL: Conscious, alert and oriented x3. No focal motor or sensory deficits. PSYCHIATRIC: Mood and affect appear normal. SKIN: No skin rash, bruise or purpuric eruption. DIAGNOSTIC DATA CBC showed white count 7.9, hemoglobin 14.8, hematocrit 44.9, platelet 272,000. Chem panel totally normal except sodium 136, blood sugar 133, AST 44. Other parameters are normal. ASSESSMENT Thrombocytopenia due to idiopathic thrombocytopenic purpura given that the patient has also autoimmune disease with rheumatoid arthritis and positive JUN. Her current platelet count initially was 23,000 and patient started prednisone 60 mg daily with normalization of her platelet count. She is currently on prednisone taper. She is receiving currently 20 mg daily and I am planning to decrease the dose by 5 mg until full tapering of prednisone. Her current platelet count is 272,000. I am planning to continue to monitor her count every week and I will see her in two months. If the patient would relapse earlier then there are two options, either Nplate therapy or rituximab. I prefer Rituximab in her case because of her underlying rheumatoid arthritis and rituximab could help her joint pain and at the same time it will help also her platelet count. I spent longer time with the patient today, answering all her questions to her satisfaction and she is agreeable with the plan of management. PLAN 1. Continue prednisone taper. 2. CBC to be checked weekly. 3. Patient to return in two months with CBC. 4. Consider treatment with rituximab or Nplate if she relapses her thrombocytopenia. 5. Patient to contact us for any new concerns or complaints. ISHAND
[2019-01-27 09:00] VITALS: BP 131/91
[2019-01-27 09:18] LABS: PLATELET COUNT, AUTOMATED 306 K/uL (150-450)
[2019-02-04 08:13] VITALS: BP 123/95
[2019-02-04 08:17] LABS: PLATELET COUNT, AUTOMATED 247 K/uL (150-450)
--- NOTE | 2019-02-04 12:53 | [facility] ONCOLOGY NOTE ---
EVENT DATE: February 04, 2019 DIAGNOSES 1. Idiopathic thrombocytopenic purpura. 2. Rheumatoid arthritis. CHIEF COMPLAINT Patient is here today for follow up of her ITP. HEMATOLOGY HISTORY Patient is a 58-year-old female with a history of autoimmune disease with mild rheumatoid arthritis diagnosed in 2010. Patient was tested also positive for JUN. She is followed by personal development educator. Patient was maintained on Plaquenil for over seven years and for improving her mood as the patient has depression and anxiety. Patient was prescribed Lamictal and after that she started to have low platelet count. She was admitted to the hospital recently with a platelet of 5,000. Patient was taken off Plaquenil and Lamictal and she received platelet transfusion and she received one dose of Decadron 40 mg intravenously and her platelet count improved after that from 5,000 to 50,000, then to 80,000 but her platelet count today on December 03, 2018, dropped back to 23 with normal CBC except for the low platelet count. Patient denies any constitutional symptoms currently. Patient denies any current bleeding or easy bruising. HISTORY AND PRESENT ILLNESS Patient is here today for followup of her ITP on prednisone taper. She is complaining of cold sweats sometimes. She has nasal discharge. She has also dry cough. She has pain in her shoulders and left hand. She has also headache. She has weakness and fatigue. She is extremely fatigued and she has recently diverticulitis, treated with antibiotic, and developed and oral thrush, which is improving with Nystatin. PAST MEDICAL HISTORY 1. Rheumatoid arthritis, diagnosed in 2010. She was diagnosed with inflammatory arthritis at that time. 2. Depression and anxiety. 3. Hypercholesterolemia. 4. Chronic kidney disease, stage 2. PAST SURGICAL HISTORY 1. Back surgery. 2. Cholecystectomy. FAMILY HISTORY Paternal aunt with breast cancer. Paternal cousin with breast cancer. 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 She denies any abuse of tobacco, alcohol or drugs. She drinks alcohol sometimes. CURRENT MEDICATIONS 1. Zolpidem 10 mg 1/2 to 1 tablet at bedtime p.r.n. 2. Minoxidil solution topical daily. 3. Acyclovir 400 mg three times a day. 4. Guaifenesin 600 mg as needed. 5. Citalopram 40 mg daily. 6. Pepcid 10 mg oral as needed. 7. Tylenol 650 mg p.r.n. for pain. 8. Zantac 150 mg as needed. 9. Pseudoephedrine 120 mg as needed. 10. Oregano Oil 1500 mg oral as needed. 11. Acetaminophen with codeine 3 every 4 hours p.r.n. for pain. 12. Clonazepam 0.5 mg twice daily as needed p.r.n. 13. Hydroxyzine 50 mg one to two capsules as needed. 14. Vitamin B complex daily. 15. Magnesium glycinate 100 mg at bedtime. 16. Conjugated estrogen 0.625 mg cream every two weeks. 17. Vitamin D3 2000 units daily. 18. Vitamin C 1000 mg daily. 19. Zinc immuno acid 50 mg daily. 20. Triamcinolone acetonide spray nasal twice. ALLERGIES No known drug allergies but she is ALLERGIC to IODINATED CONTRAST. REVIEW OF SYSTEMS CONSTITUTIONAL: She has cold sweats sometimes. HEENT: Ears: No tinnitus or hearing problem. Nose: She has nasal discharge. Throat: No sore throat or mouth ulcers. Eyes: No diplopia or visual changes. RESPIRATORY: She has dry cough. CARDIOVASCULAR: No chest pain, orthopnea, or paroxysmal nocturnal dyspnea (PND). No edema. No palpitations. GASTROINTESTINAL: She has abdominal pain and gaseous distention from her recent diverticulitis. GENITOURINARY: Patient has had heavy periods for years, and she has been seen by a hair weaver, and she was offered uterine ablation, but the patient refused the procedure. As per patient, she has had heavy periods for a total of seven days every month. MUSCULOSKELETAL: She has pain in the shoulders and left hand. NEUROLOGICAL: She has headache. HEMATOLOGIC/LYMPHATIC: She is weak, tired and fatigued extremely. SKIN: No skin rash or lumps. PSYCHIATRIC: No anxiety or depression. PHYSICAL EXAMINATION GENERAL: Looks stable. Well-developed, well-nourished, and in no acute distress. VITAL SIGNS: Blood pressure 123/95, pulse 101 per minute, respirations 16 per minute, temperature 97.4, pulse ox 91% on room air. HEENT: Head: Atraumatic. No sinus tenderness to palpation. Eyes: No icterus or conjunctivitis. Mouth and Throat: No oral thrush or mucositis. NECK: Supple. No cervical or supraclavicular lymphadenopathy. LUNGS: Clear to auscultation and percussion bilaterally. HEART: Regular rate and rhythm. No gallops, murmurs, clicks or rubs. ABDOMEN: Soft and lax. No tenderness. No hepatosplenomegaly. No masses. EXTREMITIES: No cyanosis, clubbing or edema. LYMPHATICS: No peripheral lymphadenopathy. NEUROLOGICAL: Conscious, alert and oriented x3. No focal motor or sensory deficits. PSYCHIATRIC: Mood and affect appear normal. SKIN: No skin rash, bruise or purpuric eruption. DIAGNOSTIC DATA CBC showed white count 8,000, hemoglobin 16, hematocrit 48.3, platelet 247,000. ASSESSMENT Idiopathic thrombocytopenic purpura (ITP) given that the patient has also autoimmune disease with rheumatoid arthritis and positive JUN. Patient initially presented with platelet count of 23,000. She started prednisone at 60 mg daily with normalization of her platelet count. She started after that prednisone taper. She is currently on 10 mg daily and I advised her to continue that for a week and then 5 mg for another week and then 2.5 mg for another week and to stop her prednisone. I am planning to see her in four weeks from now with CBC and I will check her CBC every week. If the patient would have relapse of her ITP, she has the option of either Nplate therapy or rituximab. Rituximab will be beneficial for her ITP and also for her rheumatoid arthritis. Her current platelet count is normal at 247,000 and I am planning to continue her prednisone taper. PLAN 1. Continue prednisone taper. 2. CBC to be checked weekly. 3. Patient to return in four weeks with CBC. 4. Consider treatment with rituximab or Nplate if her ITP relapses in the future. 5. Patient to contact us for any new concerns or complaints. BEATA
[2019-02-12 09:10] VITALS: BP 137/89
[2019-02-12 09:29] LABS: PLATELET COUNT, AUTOMATED 206 K/uL (150-450)
[2019-02-18 08:41] VITALS: BP 118/84
[2019-02-18 08:51] LABS: PLATELET COUNT, AUTOMATED 186 K/uL (150-450)
[~2019-02-25] VITALS: Ht 170.2 cm; Wt 79.7 kg
[~2019-02-25 08:30] MED LIST changes: +FLUC150T40 PO; +METR-1 PO; +TIZA-1 PO
[2019-02-25 08:42] VITALS: BP 140/101
[2019-02-25] MEDS ORDERED: METR-119 PO (08:50)
[2019-02-25] MEDS ORDERED: FLUC10SU PO (08:52)
[2019-02-25 08:53] LABS: PLATELET COUNT, AUTOMATED 320 K/uL (150-450)
== END 2019-03-02 ==
LOC: SPU 08:30
PROVIDERS: ATTEND Internal Medicine Hematology
DX: D69.6 Thrombocytopenia, unspecified (principal); M06.9 Rheumatoid arthritis, unspecified; F41.8 Other specified anxiety disorders; N18.2 Chronic kidney disease, stage 2 (mild); E78.00 Pure hypercholesterolemia, unspecified
CPT/HCPCS: 36415; 76705; 82040; 82247; 82310; 82374; 82435; 82565; 82607; 82746; 82947; 83921; 84075; 84132; 84155; 84295; 84450; 84460; 84520; 85025; 86023; 86677; 87389; 99202; 99212

== ENCOUNTER → 2019-03-16 | Outpatient (CLI) | payer BC ==
[2018-11-26 12:09] VITALS: BMI 26.9
[~2019-03-16] MED LIST changes: +ENZY1CAP3; +FLU150 PO; +FLUC10SU PO; +HYDR-4228 PO; +LACT1CAP12; +METR-119 PO
== END ==
LOC: LAB 13:21
PROVIDERS: ATTEND Family Medicine
DX: R94.6 Abnormal results of thyroid function studies (principal)
CPT/HCPCS: 36415; 82465; 83519; 83718; 84439; 84443; 84478; 84481

== ENCOUNTER 2019-04-07 01:52 | Day surgery (SDC) | payer BC ==
[2018-11-26 12:09] VITALS: Ht 172.7 cm; Wt 77.1 kg
[~2019-04-07] VITALS: Ht 172.7 cm; Wt 77.1 kg
[~2019-04-07 01:52] MED LIST changes: +ASCO-244 PO; +SIME62.54 PO; +[UNRECOGNIZED DRUG - CODE] PO
[2019-04-07] MEDS ORDERED: PROPOFOL EMUL(*) 10MG/ML 20 ML 20 ML ONE ×2 (07:11→11:14)
[2019-04-07] MEDS: NORMOSOL R SOLN(*) 1000 ML BAG 1,000 ML IV PRN ×2 (09:37→12:16)
[2019-04-07 09:46] VITALS: BP 132/82
[2019-04-07] MEDS ORDERED: LIDOCAINE/SOD BICARB 8.4% SYR ID ONE (11:00)
[2019-04-07 11:41] VITALS: BP 110/76
--- NOTE | 2019-04-07 11:47 | NUR ---
1141-PT ARRIVES TO [place] FROM OR ON CART IN [place] POSITION. VSS. PT NOT AROUSABLE AT THIS TIME. WILL CONTINUE TO MONITOR 1149-PT WAKES SPONT AT THIS TIME. REPORTS ABD PAIN. GIVEN SPRITE AT THIS TIME PER REQUEST
--- NOTE | 2019-04-07 11:47 | Short(Outpt) Discharge Summary ---
Discharge Summary Reason for Hosp/Final Diag: (1) Diverticulitis large intestine Status: Resolved Hospital Course & Plan: Colonoscopy completed without problems. Normal other than sigmoid diverticulosis. Next colonoscopy in 10 years. Departure Discharge to: Home, Self Care Discharge Instructions Home Meds Reported Medications Guaifenesin/Dextromethorphan (MUCINEX DM ER 600-30 MG TABLET) 1 Each Tab.er.12h, 1 EACH PO BID 03/30/19 Turmeric/Herbal Complex No.278 (in-Fla-Mend Capsule) 150 Mg Capsule, 1 TAB PO DAILY 03/30/19 Oregano Oil (OIL OF OREGANO) 1,500 Mg Capsule, 1500 MG PO DAILY, CAPSULE 03/30/19 Ascorbic Acid (VITAMIN C) 1,000 Mg Tablet.er, 1000 MG PO DAILY 03/30/19 Simethicone (GAS-X) 62.5 Mg Strip, 62.5 MG PO PRN, STRIP 03/30/19 Clonazepam (CLONAZEPAM) 0.5 Mg Tab.rapdis, 0.5 MG PO PRN, #6 TAB 03/30/19 Zolpidem Tartrate (AMBIEN) 5 Mg Tablet, 1 TAB PO QHS, TAB 03/30/19 Hydroxyzine Hcl (HYDROXYZINE HCL) 50 Mg Tablet, 50 MG PO QHS 03/09/19 Kenisha/Cell/Lipas/Malt/Prt/Lac/in (Digestive Enzymes Capsule) Unknown Strength Capsule 03/09/19 Tizanidine Hcl (TIZANIDINE HCL) 2 Mg Tablet, 2 MG PO TID PRN for MUSCLE SPASMS 02/18/19 D-Mannose (MANNOSE) 50 Gm Powder, 50 GM PO 12/09/18 [Vitamin D3] No Conflict Check, 5000 UNITS PO DAILY 12/09/18 Minoxidil (MINOXIDIL) 60 Ml Solution, 60 ML TP DAILY 11/26/18 Acyclovir (ACYCLOVIR) 400 Mg Tablet, 400 MG PO TID, TAB PT REPORTS TAKING 1 TAB TID FOR 4-5 DAYS PRN FOR COLD SORE BREAKOUTS 11/26/18 Citalopram Hydrobromide (CITALOPRAM HBR) 40 Mg Tablet, 40 MG PO QDAY, #5 TAB 11/26/18 Acetaminophen (ARTHRITIS PAIN) 650 Mg Tablet.er, 650 MG PO PRN 11/25/18 Magnesium Glycinate (MAG GLYCINATE) 100 Mg Tablet, 12 TAB PO QHS 11/25/18 Estrogens, Conjugated 0.625 Mg/Ml Vag Cream (PREMARIN 0.625 MG/ML VAGINAL CR) 42.5 Gm Cream.appl, 0 VG Q2WK, TUBE 01/12/17 Zinc Amino Acid Chelate (ZINC) 50 Mg Tablet, 50 MG PO QDAY 01/12/17 Triamcinolone Acetonide (Nasacort) 10.8 Ml Fitzwilliam, 1 SPRAY NS BID PRN for ALLERGY SYMPTOMS 02/28/16 Diet: Regular Activity: As Tolerated Special Instructions: Your colonoscopy was completed without problems and your prep was excellent (Good Job!!). Other than diverticulosis, your colonoscopy was completely normal. I recommend that you eat a serving of fruit with breakfast, a serving of fruit and a serving of vegetables with lunch, and 2 servings of vegetables with dinner and consider taking a daily fiber supplement such as metamucil or citrucel (generic OK). These measures help prevent the diverticulosis from getting worse. Your next colonoscopy should be in 10 years for screening. Please call my office if you have recurring symptoms of diverticulitis. Problem Qualifiers (1) Diverticulitis large intestine: Diverticulitis bleeding: without bleeding Diverticulitis complication: without perforation or abscess Qualified Codes: K57.32 - Diverticulitis of large intestine without perforation or abscess without bleeding MASOUD PARSONS MD April 07, 2019 11:47
--- NOTE | 2019-04-07 11:59 | NUR ---
1159-PT COMPLAINING OF STOMACH PAIN AND "RATTLING LUNGS". BREATHING TREATMENT ORDERED AT THIS TIME
[2019-04-07] MEDS ORDERED: ALBUTEROL/IPRATROPIUM 3 ML NEB ONE (12:01)
[2019-04-07 12:11] VITALS: BP 109/68
[2019-04-07] MEDS ORDERED: MEPERIDINE HCL 50 MG/ML SDV 50 MG/ML VIAL ONE (12:18)
--- NOTE | 2019-04-07 12:48 | NUR ---
1230-PT CONTINUES TO COUGH AND REPORT PAIN AND BURNING TO CHEST. VSS. O2 97%+ ON ROOM AIR. DR PARSONS AND DR REBOLLEDO CONSULTED AND CHEST XRAY ORDERED AT THIS TIME. 1250-SBAR REPORT TO EMERITA GRADY.
--- NOTE | 2019-04-07 12:56 | RADIOLOGY IMAGING REPORT ---
[place] [facility] [place] Edna Haider : 1960 MR: [id number] V: [id number] EXAM DATE: ORDERING PHYSICIAN: DAWSON REBOLLEDO TECHNOLOGIST: Location: [facility] - [place] Patient: Edna Haider : 1960 Visit/Account:[id number] Date of Sevice: 04/07/2019 CHEST SINGLE AP Indication: POST OP BREATHING TROUBLES Comparison: None. Findings: Lungs: Clear. Mediastinum/pulmonary vasculature: Heart size and pulmonary vasculature are normal. Bones/soft tissues: Normal. IMPRESSION: Clear lungs. Report Dictated By: Jarrell Cunha at 04/07/2019 12:51 PM Report E-Signed By: Jarrell Cunha at 04/07/2019 12:51 PM WSN:[email or web address]
[2019-04-07 13:15] VITALS: BP 113/76
[2019-04-07 13:22] VITALS: BP 99/79
[2019-04-07 13:24] VITALS: BP 108/76
[2019-04-07] MEDS ORDERED: BENZ100C4 PO (17:04)
== END 2019-04-07 13:40 | disposition home or self-care (01) ==
LOC: OR 01:52
PROVIDERS: ATTEND Surgery
DX: K57.32 Diverticulitis of large intestine without perforation or abscess without bleeding (principal); E78.5 Hyperlipidemia, unspecified; G47.30 Sleep apnea, unspecified; R06.00 Dyspnea, unspecified
CPT/HCPCS: 00811; 45378; 71045; 94640; J2175; J2704; J7620

== ENCOUNTER 2019-04-07 18:55 | Emergency (ER) | payer BC ==
[2018-11-26 12:09] VITALS: Wt 77.1 kg
[~2019-04-07 18:55] MED LIST changes: +BENZ100C4 PO
--- NOTE | 2019-04-07 19:06 | ER Report ---
History and Physical Time Seen By MD: 19:03 Hx. of Stated Complaint: PATIENT HAD A COLONOSCOPY TODAY, HAD PROPRAFOL, WHEN SHE WOKE UP SHE HAS HAD COUGHING THAT WON'T STOP, THEY GAVE HER BREATHING TREATMENT AND CHEST XRAY IN PACU. SENT HER HOME WITH COUGH SUPPRESANT, AND INHALER, BUT NO HELP, JAQUELINE TOLD HER TO COME UP BECAUSE IT MAYBE A REACTION. HPI/ROS CHIEF COMPLAINT: Persisting coughing HISTORY OF PRESENT ILLNESS: 58-year-old female who underwent colonoscopy today with propofol conscious sedation. Patient woke up with a persistent cough that is persistent. Her doctor prescribed Tessalon Perles. She also has an inhaler which is not helping. She has a hoarse barking cough with wheezing. A chest x- ray was done to rule out pneumothorax which was negative. Her lung johns are clear. The chest x-ray was reviewed. Patient notes fever or chills. She has a harsh wheezy cough. She denies shortness of breath. She notes some chest pain from coughing so much. REVIEW OF SYSTEMS: Respiratory: As above Cardiovascular: No chest pain, no palpitations. Gastrointestinal: No vomiting, no abdominal pain. Musculoskeletal: No back pain. Allergies: Coded Allergies: propofol (Verified Allergy, Unknown, SHORTNESS OF BREATH, 04/07/19) Cough sulfamethoxazole (Unverified Adverse Reaction, Severe, NAUSEA/VOMITING, 04/07/19) trimethoprim (Unverified Adverse Reaction, Severe, NAUSEA/VOMITING, 04/07/19) levofloxacin (Verified Adverse Reaction, Intermediate, ACHILIES INFLAMATION, 04/07/19) Home Meds Active Scripts Benzonatate 100 Mg Cap (TESSALON PERLE 100 MG CAP) 100 Mg Capsule, 1 CAP PO TID PRN for COUGH, #30 CAP 0 Refills Prov:MASOUD PARSONS MD 04/07/19 Reported Medications Guaifenesin/Dextromethorphan (MUCINEX DM ER 600-30 MG TABLET) 1 Each Tab.er.12h, 1 EACH PO BID 03/30/19 Turmeric/Herbal Complex No.278 (in-Fla-Mend Capsule) 150 Mg Capsule, 1 TAB PO DAILY 03/30/19 Oregano Oil (OIL OF OREGANO) 1,500 Mg Capsule, 1500 MG PO DAILY, CAPSULE 03/30/19 Ascorbic Acid (VITAMIN C) 1,000 Mg Tablet.er, 1000 MG PO DAILY 03/30/19 Simethicone (GAS-X) 62.5 Mg Strip, 62.5 MG PO PRN, STRIP 03/30/19 Clonazepam (CLONAZEPAM) 0.5 Mg Tab.rapdis, 0.5 MG PO PRN, #6 TAB 03/30/19 Zolpidem Tartrate (AMBIEN) 5 Mg Tablet, 1 TAB PO QHS, TAB 03/30/19 Hydroxyzine Hcl (HYDROXYZINE HCL) 50 Mg Tablet, 50 MG PO QHS 03/09/19 Kenisha/Cell/Lipas/Malt/Prt/Lac/in (Digestive Enzymes Capsule) Unknown Strength Capsule 03/09/19 Tizanidine Hcl (TIZANIDINE HCL) 2 Mg Tablet, 2 MG PO TID PRN for MUSCLE SPASMS 02/18/19 D-Mannose (MANNOSE) 50 Gm Powder, 50 GM PO 12/09/18 [Vitamin D3] No Conflict Check, 5000 UNITS PO DAILY 12/09/18 Minoxidil (MINOXIDIL) 60 Ml Solution, 60 ML TP DAILY 11/26/18 Acyclovir (ACYCLOVIR) 400 Mg Tablet, 400 MG PO TID, TAB PT REPORTS TAKING 1 TAB TID FOR 4-5 DAYS PRN FOR COLD SORE BREAKOUTS 11/26/18 Citalopram Hydrobromide (CITALOPRAM HBR) 40 Mg Tablet, 40 MG PO QDAY, #5 TAB 11/26/18 Acetaminophen (ARTHRITIS PAIN) 650 Mg Tablet.er, 650 MG PO PRN 11/25/18 Magnesium Glycinate (MAG GLYCINATE) 100 Mg Tablet, 12 TAB PO QHS 11/25/18 Estrogens, Conjugated 0.625 Mg/Ml Vag Cream (PREMARIN 0.625 MG/ML VAGINAL CR) 42.5 Gm Cream.appl, 0 VG Q2WK, TUBE 01/12/17 Zinc Amino Acid Chelate (ZINC) 50 Mg Tablet, 50 MG PO QDAY 01/12/17 Triamcinolone Acetonide (Nasacort) 10.8 Ml Garland, 1 SPRAY NS BID PRN for ALLERGY SYMPTOMS 02/28/16 Past Medical/Surgical History PAST MEDICAL HISTORY 1. Rheumatoid arthritis, diagnosed in 2010. She was diagnosed with inflammatory arthritis at that time. 2. Depression and anxiety. 3. Hypercholesterolemia. 4. Chronic kidney disease, stage 2. PAST SURGICAL HISTORY 1. Back surgery. 2. Cholecystectomy. FAMILY HISTORY Paternal aunt with breast cancer. Paternal cousin with breast cancer. 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 She denies any abus e of tobacco, alcohol or drugs. She drinks alcohol sometimes. Reviewed Nurses Notes: Yes Old Medical Records Reviewed: Yes Hx Smoking: No Smoking Status: Never Smoker Exposure to Second Hand Smoke?: Yes (growing up) Hx Substance Use Disorder: No Hx Alcohol Use: Yes (moderate) Constitutional Vital Sign - Last 24 Hours 04/07/19 04/07/19 04/07/19 04/07/19 18:59 19:10 19:10 19:10 Temp 99.3 Pulse 105 102 104 Resp 24 16 B/P (MAP) 145/100 Pulse Ox 97 95 95 O2 Delivery Room Air Room Air 04/07/19 04/07/19 04/07/19 04/07/19 19:17 19:20 19:20 19:23 Pulse 105 109 114 Resp 22 20 20 Pulse Ox 99 O2 Delivery Room Air 04/07/19 04/07/19 04/07/19 04/07/19 19:25 19:30 19:40 19:55 Pulse 108 103 99 B/P (MAP) 130/81 (97) Pulse Ox 99 96 94 04/07/19 04/07/19 04/07/19 04/07/19 20:00 20:05 20:20 20:30 Pulse 94 97 B/P (MAP) 126/88 (101) 136/90 (105) Pulse Ox 94 93 04/07/19 04/07/19 04/07/19 04/07/19 20:35 20:50 20:55 21:00 Pulse 91 88 88 B/P (MAP) 132/86 (101) Pulse Ox 92 92 92 04/07/19 04/07/19 21:10 21:25 Pulse 90 84 Pulse Ox 92 91 Physical Exam Vital signs stable, afebrile, pulse ox normal General Appearance: The patient is alert, has no immediate need for airway protection and no current signs of toxicity. Moderate distress HEENT: Pupils equal and round no injection. Oropharynx with moderate erythema, no exudate or petechiae Respiratory: Chest is non tender, gross expiratory wheezing and harsh breath sounds bilaterally Cardiac: regular rate and rhythm Gastrointestinal: Abdomen is soft and non tender, no masses, bowel sounds normal. Musculoskeletal: Neck: Neck is supple and non tender. No lymphadenopathy, no subcutaneous emphysema Extremities have full range of motion and are non tender. Skin: No rashes or lesions. DIFFERENTIAL DIAGNOSIS: After history and physical exam differential diagnosis was considered for bronchospasm, GERD, reactive airways disease, aspiration, medication adverse reaction, pneumonitis Medical Decision Making ED Course/Re-evaluation ED Course Patient was minute to an examination room. H&P was done. The differential diagnoses was considered. On clinical examination. Patient's chest x-ray is unremarkable. Patient's vital signs are stable, but she has a persistent harsh cough. It is almost continuous. She has chest discomfort with that. Treated with a DuoNeb with lidocaine 1% 3 mL added to the solution baby gets quite shaky from the albuterol. A Pulmicort neb is administered after that. Patient has some decrease in her coughing. Patient's coughing returns. She's medicated with Robitussin DM and Phenergan 25 mg. Patient's coughing is significantly improved but still having an occasional cough. She feels much better. She also has severe acid reflux symptoms. She is treated with a GI cocktail with improvement. She'll be discharged home with Phenergan with codeine 20 mL she is advised 5-10 mL every 4 hours as needed throughout the night. She's also advised to take prednisone 40 mg for 2 days, 20 g for 2 days to reduce any inflammation in her lungs. Patient advised to follow-up with primary care or Dr. Parsons, who did her colonoscopy. Decision to Disposition Date: April 07, 2019 Decision to Disposition Time: 20:57 Depart Departure Latest Vital Signs Vital Signs Date Time Temp Pulse Resp B/P (MAP) Pulse Ox O2 Delivery O2 Flow Rate FiO2 04/07/19 21:25 84 91 04/07/19 21:00 132/86 (101) 04/07/19 19:23 20 04/07/19 19:20 Room Air 04/07/19 18:59 99.3 Impression: Primary Impression: Persistent cough Additional Impressions: Bronchospasm Status post colonoscopy Condition: Improved Disposition: HOME OR SELF-CARE Referrals: GABI BARCLAY DO (PCP) Patient Instructions: Acute Cough (ED), Bronchospasm (ED) Additional Instructions: Take prednisone 40 mg for 2 days, then 20 mg for 2 days Use Robitussin-DM cough suppressant as needed Use Phenergan with codeine for severe cough suppression. 5-10 mL every 4-6 hours as needed for cough suppression Follow-up with your primary care if unimproved in 2-3 days Problem Qualifiers LONNY SHAH DO April 07, 2019 19:06
[2019-04-07] MEDS ORDERED: ALBUTEROL/IPRATROPIUM 3 ML NEB NEB ONE (19:10)
[2019-04-07] MEDS ORDERED: BUDESONIDE 0.5 MG/2 ML NEB NEB ONE (19:20)
[2019-04-07] MEDS ORDERED: GUAIFENESIN/DEXTROMETHORPHAN 5 ML PO ONE (20:10)
[2019-04-07] MEDS ORDERED: PROMETHAZINE HCL 25 MG TAB PO ONE (20:10)
[2019-04-07] MEDS ORDERED: APAP/HYDROCODONE 325/5 TAB PO ONE (20:50)
[2019-04-07 21:00] VITALS: BP 132/86
[2019-04-07] MEDS ORDERED: PROMETH/COD SYRP 6.25-10MG/5ML PO ONE (21:00)
[2019-04-07] MEDS ORDERED: LIDOCAINE 2% VISC SLN 15ML UDC PO ONE (21:05)
[2019-04-07] MEDS ORDERED: PANTOPRAZOLE SOD 20 MG TABEC PO ONE (21:05)
[2019-04-07] MEDS ORDERED: MAG HYD/AL HYD/SIMETH 30ML UDC PO ONE (21:05)
[2019-04-07] MEDS ORDERED: PANTOPRAZOLE SOD 40 MG TABEC PO ONE (21:25)
== END 2019-04-07 21:29 | disposition home or self-care (01) ==
LOC: ER 19:14
DX: R05 Cough (principal); J98.01 Acute bronchospasm
CPT/HCPCS: 94640; 99284; J7620; J7626; Q0169

== ENCOUNTER → 2019-04-09 | Outpatient (CLI) | payer BC ==
[2018-11-26 12:09] VITALS: BMI 26.9
== END ==
LOC: LAB 14:15
PROVIDERS: ATTEND Internal Medicine Nephrology
DX: N20.0 Calculus of kidney (principal); N18.2 Chronic kidney disease, stage 2 (mild)
CPT/HCPCS: 36415; 81001; 82040; 82310; 82374; 82435; 82565; 82947; 84100; 84132; 84295; 84520

== ENCOUNTER → 2019-04-09 | Outpatient (CLI) | payer BC ==
[2018-11-26 12:09] VITALS: BMI 26.9
--- NOTE | 2019-04-09 15:06 | RADIOLOGY IMAGING REPORT ---
FACILITY: [facility] - [place] PATIENT NAME: Edna Haider : 1960 MR: [id number] V: [id number] EXAM DATE: ORDERING PHYSICIAN: WING COLEMAN TECHNOLOGIST: Location: [facility] - [place] Patient: Edna Haider : 1960 Visit/Account:[id number] Date of Sevice: 04/09/2019 CHEST PA LAT COMPARISONS: April 07, 2019 ADDITIONAL PERTINENT HISTORY: Cough FINDINGS: Cardiomediastinal silhouette: Negative. Pulmonary vasculature: Negative. Lung johns: Negative. Pleural spaces: Negative. Osseous structures: Negative. Surrounding soft tissues: Negative. IMPRESSION: Normal views of the chest. Report Dictated By: Wing Diaz MD at 04/09/2019 3:00 PM Report E-Signed By: Wing Diaz MD at 04/09/2019 3:01 PM WSN:[email or web address]
== END ==
LOC: RAD 14:18
PROVIDERS: ATTEND Family Medicine
DX: R05 Cough (principal)
CPT/HCPCS: 71046

== ENCOUNTER 2019-05-27 08:27 | Outpatient (RCR) | payer BC ==
[2018-11-26 12:09] VITALS: Wt 80.4 kg
[2019-03-04 08:29] VITALS: BP 136/93
[2019-03-04 08:47] LABS: PLATELET COUNT, AUTOMATED 268 K/uL (150-450)
--- NOTE | 2019-03-04 13:04 | EL-TARABILY ONCOLOGY NOTE ---
EVENT DATE: March 04, 2019 DIAGNOSES 1. Idiopathic thrombocytopenic purpura. 2. Rheumatoid arthritis. CHIEF COMPLAINT Patient is here today for follow up of her ITP. HEMATOLOGY HISTORY Patient is a 58-year-old female with a history of autoimmune disease with mild rheumatoid arthritis diagnosed in 2010. Patient was tested also positive for JUN. She is followed by travel clerk. Patient was maintained on Plaquenil for over seven years and for improving her mood as the patient has depression and anxiety. Patient was prescribed Lamictal and after that she started to have low platelet count. She was admitted to the hospital recently with a platelet of 5,000. Patient was taken off Plaquenil and Lamictal and she received platelet transfusion and she received one dose of Decadron 40 mg intravenously and her platelet count improved after that from 5,000 to 50,000, then to 80,000 but her platelet count today on December 03, 2018, dropped back to 23 with normal CBC except for the low platelet count. Patient denies any constitutional symptoms currently. Patient denies any current bleeding or easy bruising. HISTORY AND PRESENT ILLNESS Patient is here today for followup of her ITP after she finished her prednisone taper a week ago. Patient was diagnosed recently with diverticulitis and presented with fever at that time on January 29, 2019, treated successfully with antibiotics. She is complaining of headache and blurry vision lately. She has cough with little phlegm. She had diarrhea when she had the episode of diverticulitis. She has pain in her elbows and shoulders from her rheumatoid arthritis. She has also tingling and numbness in the left hand and right foot. She is also weak, tired and fatigued most of the time. PAST MEDICAL HISTORY 1. Rheumatoid arthritis, diagnosed in 2010. She was diagnosed with inflammatory arthritis at that time. 2. Depression and anxiety. 3. Hypercholesterolemia. 4. Chronic kidney disease, stage 2. PAST SURGICAL HISTORY 1. Back surgery. 2. Cholecystectomy. FAMILY HISTORY Paternal aunt with breast cancer. Paternal cousin with breast cancer. 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 She denies any abuse of tobacco, alcohol or drugs. She drinks alcohol sometimes. CURRENT MEDICATIONS 1. Zolpidem 10 mg 1/2 to 1 tablet at bedtime p.r.n. 2. Minoxidil solution topical daily. 3. Acyclovir 400 mg three times a day. 4. Guaifenesin 600 mg as needed. 5. Citalopram 40 mg daily. 6. Pepcid 10 mg oral as needed. 7. Tylenol 650 mg p.r.n. for pain. 8. Zantac 150 mg as needed. 9. Pseudoephedrine 120 mg as needed. 10. Oregano Oil 1500 mg oral as needed. 11. Acetaminophen with codeine 3 every 4 hours p.r.n. for pain. 12. Clonazepam 0.5 mg twice daily as needed p.r.n. 13. Hydroxyzine 50 mg one to two capsules as needed. 14. Vitamin B complex daily. 15. Magnesium glycinate 100 mg at bedtime. 16. Conjugated estrogen 0.625 mg cream every two weeks. 17. Vitamin D3 2000 units daily. 18. Vitamin C 1000 mg daily. 19. Zinc immuno acid 50 mg daily. 20. Triamcinolone acetonide spray nasal twice. ALLERGIES No known drug allergies but she is ALLERGIC to IODINATED CONTRAST. REVIEW OF SYSTEMS CONSTITUTIONAL: Patient had fever when she had the episode of diverticulitis but it resolved with antibiotics. HEENT: Ears: She has blurry vision. Nose: She has nasal discharge. Throat: No sore throat or mouth ulcers. Eyes: No diplopia or visual changes. RESPIRATORY: She has cough with little phlegm. CARDIOVASCULAR: No chest pain, orthopnea, or paroxysmal nocturnal dyspnea (PND). No edema. No palpitations. GASTROINTESTINAL: She had diarrhea with her diverticulitis. GENITOURINARY: Patient has had heavy periods for years, and she has been seen by a traffic rate computer, and she was offered uterine ablation, but the patient refused the procedure. As per patient, she has had heavy periods for a total of seven days every month. MUSCULOSKELETAL: She has pain in the elbows and shoulders. NEUROLOGICAL: She has tingling and numbness in the left hand and right foot and she has also headache. HEMATOLOGIC/LYMPHATIC: She is weak, tired and fatigued. SKIN: No skin rash or lumps. PSYCHIATRIC: No anxiety or depression. PHYSICAL EXAMINATION GENERAL: Looks stable. Well-developed, well-nourished, and in no acute distress. VITAL SIGNS: Blood pressure 136/93, pulse 91 per minute, respirations 16 per minute, temperature 97.5, pulse ox 96% on room air. HEENT: Head: Atraumatic. No sinus tenderness to palpation. Eyes: No icterus or conjunctivitis. Mouth and Throat: No oral thrush or mucositis. NECK: Supple. No cervical or supraclavicular lymphadenopathy. LUNGS: Clear to auscultation and percussion bilaterally. HEART: Regular rate and rhythm. No gallops, murmurs, clicks or rubs. ABDOMEN: Soft and lax. No tenderness. No hepatosplenomegaly. No masses. EXTREMITIES: No cyanosis, clubbing or edema. LYMPHATICS: No peripheral lymphadenopathy. NEUROLOGICAL: Conscious, alert and oriented x3. No focal motor or sensory deficits. PSYCHIATRIC: Mood and affect appear normal. SKIN: No skin rash, bruise or purpuric eruption. DIAGNOSTIC DATA CBC showed white count 5.2, hemoglobin 15.2, hematocrit 46.4, platelet 268,000. Chem panel totally normal except AST 36. ASSESSMENT Idiopathic thrombocytopenic purpura (ITP) given that the patient also has an autoimmune disease with rheumatoid arthritis and positive JUN. She was initially presented with platelet count of 23,000. Patient started prednisone at 60 mg daily with slow prednisone taper and she finished her prednisone taper a week ago. She is off prednisone currently and her platelet count is normal at 268,000. If the patient would have relapse in the future, my plan is to treat her with Nplate as the patient does not like the Rituximab, which will compromise her immune system, and she does not like that idea. I am planning to check her CBC every month and I will see her three months with another CBC at that time. PLAN 1. Continue followup. 2. Patient to return in three months with CBC. 3. CBC to be checked monthly. 4. Patient to contact us for any new concerns or complaints. BEATA
[2019-04-01 08:46] LABS: PLATELET COUNT, AUTOMATED 210 K/uL (150-450)
[2019-04-01 08:59] VITALS: BP 128/86
[2019-05-03 10:46] VITALS: BP 110/95
[2019-05-03 10:54] LABS: PLATELET COUNT, AUTOMATED 227 K/uL (150-450)
[~2019-05-27 08:27] MED LIST changes: -BISA5TAB19 PO; +BISA5TAB65 PO; -RANI-366 PO; +RANI-54 PO
[2019-05-27 08:40] VITALS: BP 111/84
[2019-05-27 08:51] LABS: PLATELET COUNT, AUTOMATED 93 K/uL (150-450)
[2019-05-27] MEDS ORDERED: PANT40TA65 PO (13:12)
[2019-05-27] MEDS ORDERED: ATOR20TA65 PO (13:12)
== END 2019-06-01 ==
LOC: SPU 08:27
PROVIDERS: ATTEND Internal Medicine Hematology
DX: D69.3 Immune thrombocytopenic purpura (principal); M06.9 Rheumatoid arthritis, unspecified; R51 Headache; H53.8 Other visual disturbances; R05 Cough; R19.7 Diarrhea, unspecified; R53.1 Weakness; R53.83 Other fatigue
CPT/HCPCS: 36415; 82728; 83540; 83550; 85025; 99212

== ENCOUNTER → 2019-06-08 | Outpatient (CLI) | payer BC ==
[2018-11-26 12:09] VITALS: BMI 26.9
[~2019-06-08] MED LIST changes: +ATOR20TA65 PO; +PANT40TA65 PO
== END ==
LOC: LAB 11:29
PROVIDERS: ATTEND Internal Medicine Nephrology
DX: N20.0 Calculus of kidney (principal); N18.2 Chronic kidney disease, stage 2 (mild)
CPT/HCPCS: 81001; 87088

== ENCOUNTER → 2019-07-20 | Outpatient (CLI) | payer BC ==
[2018-11-26 12:09] VITALS: BMI 26.9
--- NOTE | 2019-07-20 11:28 | RADIOLOGY IMAGING REPORT ---
[facility] PATIENT NAME: Edna Haider : 1960 MR: [id number] V: [id number] EXAM DATE: ORDERING PHYSICIAN: GABI BARCLAY TECHNOLOGIST: Location: [facility] [place] Patient: Edna Haider : 1960 Visit/Account:[id number] Date of Sevice: 07/20/2019 Exam type: XR BILATERAL KNEE 3 VWS History: Right knee pain, left knee pain Comparison: None. Findings: Is moderate narrowing of the medial compartment of the left knee with marginal spurring. There is al so mild to moderate narrowing of the left patellofemoral joint. There is moderate narrowing of the medial compartment of the right knee with marginal spurring. Ther e is also mild to moderate narrowing of the patellofemoral joint on the right IMPRESSION: 1. Moderate narrowing of the medial compartment of both knees with marginal spurring Mild to moderate narrowing of both patellofemoral joints Report Dictated By: Iram Chiu MD at 07/20/2019 11:18 AM Report E-Signed By: Iram Chiu MD at 07/20/2019 11:20 AM WSN:[id number]
== END ==
LOC: RAD 09:31
PROVIDERS: ATTEND Family Medicine
DX: M25.562 Pain in left knee (principal); M25.561 Pain in right knee

== ENCOUNTER → 2019-07-20 | Outpatient (REF) | payer BC ==
[2018-11-26 12:09] VITALS: BMI 26.9
== END ==
LOC: ZZIMHLAB 10:01
PROVIDERS: ATTEND Family Medicine
DX: Z13.1 Encounter for screening for diabetes mellitus (principal); E78.00 Pure hypercholesterolemia, unspecified; M79.671 Pain in right foot
CPT/HCPCS: 82465; 83036; 83718; 84478; 84550